=== PATIENT | male | born 1945 | race Hispanic/Latino ===

== ENCOUNTER 2018-06-26 09:39 | Day surgery (SDC) | payer MEDICARE, BC ==
[2018-06-26 11:44] VITALS: BMI 27.1
[2018-06-26] MEDS ORDERED: Propofol 10 mg/ml Inj (20 ML) ONE ×2 (13:31)
[2018-06-26] MEDS ORDERED: Midazolam 2 MG/2 ML VIAL ONE (13:43)
[2018-06-26 14:27] VITALS: TEMP 96.7
[2018-06-26 15:11] VITALS: PULSE 60; RESP 16; O2SAT 100
[2018-06-26 16:04] VITALS: BP 135/87
== END 2018-06-26 15:50 | disposition home or self-care (01) ==
LOC: C.ENDO 09:39
PROVIDERS: ATTEND Internal Medicine Gastroenterology
DX: K21.0 Gastro-esophageal reflux disease with esophagitis (principal); Z12.11 Encounter for screening for malignant neoplasm of colon; K29.50 Unspecified chronic gastritis without bleeding; D12.2 Benign neoplasm of ascending colon; D12.5 Benign neoplasm of sigmoid colon; K64.1 Second degree hemorrhoids; I10 Essential (primary) hypertension; E78.5 Hyperlipidemia, unspecified; E11.9 Type 2 diabetes mellitus without complications
CPT/HCPCS: 43239; 45380; 82948; 88305; 88312; 88342; J2001; J2250; J2704